=== PATIENT | female | born 1960 | race Caucasian/White ===

== ENCOUNTER 2023-07-09 10:41 | Emergency (ER) | payer OTHER ==
[2023-07-09 11:13] VITALS: TEMP 95.7; BMI 20.3
[2023-07-09] MEDS ORDERED: PIPERACILLIN/TAZOB 4.5 GM 4.5 GM/100 ML BAG IVPB ONE (11:33)
[2023-07-09 11:53] LABS: VENOUS BASE EXCESS -2.9 mmol/L (-2-2); VENOUS O2 SATURATION 61.1 % (70-80); VENOUS PCO2 48.1 mmHg (38-52); VENOUS PH 7.306 (7.310-7.410)
[2023-07-09 11:56] LABS: BASO % 0.1 % (0-2.0); EOS % 0.2 % (0-4.5); HEMATOCRIT 32.1 % (32.4-45.2); HEMOGLOBIN 9.9 GM/dL (10.7-15.3); LYMPH % 26.8 % (8-40); MCH 26.3 pg (25.7-33.7); MCHC 30.7 g/dl (32.0-36.0); MEAN CELL VOLUME 85.8 fl (80-96); MEAN PLT VOLUME 8.8 fl (7.5-11.1); MONO % 5.3 % (3.8-10.2); NEUT % 67.6 % (42.8-82.8); PLATELET COUNT 302 10^3/uL (134-434); RBC 3.74 M/mm3 (3.60-5.2); RDW 17.9 % (11.6-15.6)
[2023-07-09] MEDS ORDERED: VANCOMYCIN 1 GRAM (PRE-DOCKED) 1,000 MG/250 ML BAG IVPB ONE (12:03)
[2023-07-09] MEDS: LACTATED RINGERS SOLUTION 1,000 ML/1,000 ML INFUS.BAG IV SCH (12:15)
[2023-07-09] MEDS: VANCOMYCIN 1,000 MG in DEXTROSE 5%-WATER - 250 ML IVPB ONE (12:16)
[2023-07-09] MEDS: PIPERACILLIN/TAZOBACTAM 4.5 GM VIAL IVPB ONE (12:16)
[2023-07-09 12:17] LABS: ACTIVATED PTT 27.9 SECONDS (25.2-36.5); INR 1.17 (0.83-1.09); PROTHROMBIN TIME (PATIENT) 13.6 SEC (9.7-13.0)
[2023-07-09 12:22] VITALS: RESP 16
[2023-07-09 12:33] LABS: CHLORIDE 104 mmol/L (98-107); SODIUM 136 mmol/L (136-145)
[2023-07-09 12:34] LABS: LACTIC ACID 4.9 mmol/L (0.4-2.0)
[2023-07-09 12:36] LABS: CO2 24 mmol/L (21-32); MAGNESIUM 2.7 mg/dL (1.8-2.4)
[2023-07-09 12:40] LABS: CREATININE 2.5 mg/dL (0.55-1.3); PHOSPHOROUS 4.3 mg/dL (2.5-4.9); SGOT/AST 53 U/L (15-37); SGPT/ALT 17 U/L (13-61)
[2023-07-09 12:41] LABS: BILIRUBIN,TOTAL 0.5 mg/dL (0.2-1); TOT PROT 9.3 g/dl (6.4-8.2)
[2023-07-09 12:42] LABS: ALK PHOS 147 U/L (45-117)
[2023-07-09 12:43] LABS: ANION GAP 8 mmol/L (4-13); GLUCOSE,RANDOM 491 mg/dL (74-106); POTASSIUM 7.8 mmol/L (3.5-5.1)
[2023-07-09] MEDS ORDERED: DEXAMETHASONE SOD PHOSPHATE 10 MG/1 ML VIAL ONE (13:10)
[2023-07-09] MEDS ORDERED: INSULIN REGULAR HUMAN 100 UNITS/ML *VIAL ONE (13:10)
[2023-07-09] MEDS: SODIUM CHLORIDE 0.9% 500 ML INFUS.BAG IV ONE (14:15)
[2023-07-09] MEDS: INSULIN REGULAR HUMAN 100 UNITS/ML *VIAL IVPUSH ONE (14:16)
[2023-07-09] MEDS: DEXAMETHASONE SOD PHOSPHATE 10 MG/1 ML VIAL IVPUSH ONE (14:16)
[2023-07-09 14:21] LABS: EPI CELLS 9 /uL (0-25.1); HYALINE CASTS 0 /uL (0-3.1); URINE APPEARANCE CLOUDY; URINE BACTERIA >9,000 /uL (0-1359); URINE BILIRUBIN NEGATIVE (NEGATIVE); URINE COLOR YELLOW; URINE GLUCOSE (UA) 2+ (NEGATIVE); URINE KETONE NEGATIVE (NEGATIVE); URINE LEUK ESTERASE 2+ (NEGATIVE); URINE NITRITE NEGATIVE (NEGATIVE); URINE PROTEIN 2+ (NEGATIVE); URINE RBC 148 /uL (0-23.9); URINE UROBILINOGEN 0.2 mg/dL (0.2-1.0); URINE WBC 1410 /uL (0-25.8)
[2023-07-09 14:31] LABS: CHLORIDE 107 mmol/L (98-107); POTASSIUM 4.2 mmol/L (3.5-5.1); SODIUM 139 mmol/L (136-145)
[2023-07-09 14:33] LABS: ANION GAP 8 mmol/L (4-13); BLOOD UREA NITROGEN 95.9 mg/dL (7-18); CALCIUM 9.4 mg/dL (8.5-10.1); CO2 24 mmol/L (21-32)
[2023-07-09 14:37] LABS: CREATININE 2.1 mg/dL (0.55-1.3); GLUCOSE,RANDOM 448 mg/dL (74-106)
[2023-07-09 14:44] LABS: LACTIC ACID 2.8 mmol/L (0.4-2.0)
[2023-07-09 15:08] VITALS: BP 96/72; PULSE 87
== END 2023-07-09 15:38 | disposition short-term general hospital (02) ==
LOC: JER 10:41
PROC: 3E03329 Introduction of Other Anti-infective into Peripheral Vein, Percutaneous Approach (ICD-10-PCS; principal; 2023-07-09)
PROC: 3E03329 Introduction of Other Anti-infective into Peripheral Vein, Percutaneous Approach (ICD-10-PCS; 2023-07-09)
PROC: 3E033VG Introduction of Insulin into Peripheral Vein, Percutaneous Approach (ICD-10-PCS; 2023-07-09)
PROC: 3E033GC Introduction of Other Therapeutic Substance into Peripheral Vein, Percutaneous Approach (ICD-10-PCS; 2023-07-09)
PROC: 05HM03Z Insertion of Infusion Device into Right Internal Jugular Vein, Open Approach (ICD-10-PCS; 2023-07-09)
DX: U07.1 COVID-19 (principal); A41.9 Sepsis, unspecified organism; L89.150 Pressure ulcer of sacral region, unstageable; B20 Human immunodeficiency virus [HIV] disease; B19.20 Unspecified viral hepatitis C without hepatic coma; R41.82 Altered mental status, unspecified; R09.02 Hypoxemia; R53.83 Other fatigue
CPT/HCPCS: 0241U-QW; 36415; 71045-TC-FY; 80048; 80053; 81003; 82550; 82553; 82803; 82962; 83605; 83735; 84100; 84484; 85025; 85610; 85730; 87040; 87070; 87077; 87086; 87186; 87205; 93005; 93010; 99285-25; J1100